=== PATIENT | female | born 1975 | race Caucasian/White ===

== ENCOUNTER 2017-05-16 12:33 | Observation (INO) ==
[2017-05-16] MEDS ORDERED: 0.9 % Sodium Chloride 500 ML IVC ONE (12:44)
--- NOTE | 2017-05-16 12:48 | Emergency Department Note ---
Disposition Clinical Impression: Chest pain Qualifiers: Chest pain type: unspecified Qualified Code(s): R07.9 - Chest pain, unspecified Disposition: Still a Patient Condition: Good Forms: ED Satisfaction Letter Time of Disposition: 14:13 Chest Pain HPI - General Chief Complaint: ED Chest Pain Stated Complaint: Chest pain Time Seen by Provider: 05/16/17 12:43 Source: family, EMS Mode of arrival: EMS Limitations: no limitations Vital Signs Reviewed: Yes Nursing Notes Reviewed: Yes - History of Present Illness HPI Narrative: Patient presents emergency room with onset of left-sided chest pain. She has had right-sided chest pain for over a month and a half. She has risk factors including smoking elevated blood pressure and high cholesterol. She denies any trauma or injuries. She was concerned because the symptoms came on. She was seen by EMS provided with aspirin and nitroglycerin which completely resolved symptoms here prior to arrival Pt complaint: chest pain Onset (ago): Just [employer] Duration: now resolved Onset: during exertion Pain Location: left chest Severity: mild Severity scale (1-10): 0 Quality: aching, heaviness Pain Radiation: LUE Improves with: nitroglycerin Worsens with: exertion Associated symptoms: Denies: nausea, vomiting, diaphoresis Treatments prior to arrival chest pain: aspirin, nitroglycerin - Related Data Home Medications Medication Instructions Recorded Confirmed Cholecalciferol (D-3) [Vitamin D] 1,000 unit PO DAILY 05/16/17 05/16/17 FLUoxetine HCl [Fluoxetine HCl] 40 mg PO DAILY 05/16/17 05/16/17 Lisinopril/Hydrochlorothiazide 1 tab PO BID 05/16/17 05/16/17 [Zestoretic 20-12.5 mg Tablet] Ranitidine HCl [Zantac] 150 mg PO BID 05/16/17 05/16/17 traZODone [TraZODone] 50 mg PO HS 05/16/17 05/16/17 Previous Rx's Medication Instructions Recorded Albuterol Sulfate [Albuterol 2 puff IH Q4HR PRN #1 hfa.[email or web address] 07/08/15 Inhaler] Allergies Allergy/AdvReac Type Severity Reaction Status Date / Time No Known Allergies Allergy Verified 07/08/15 14:25 All systems ED: reviewed and negative except as stated. Review of Systems: As Per HPI Constitutional: Denies: fever, chills Cardiovascular: Reports: chest pain. Denies: palpitations, dyspnea on exertion , orthopnea, edema Respiratory: Denies: cough, dyspnea, wheezes, hemoptysis Gastrointestinal: Denies: abdominal pain, nausea, vomiting, diarrhea Genitourinary: Denies: urgency, dysuria Musculoskeletal: Denies: back pain, neck pain Neurological: Denies: headache Endocrine: Denies: fatigue Chest Pain PMH - Past Medical History Medical history: Reports: hypertension Surgical history: Reports: cholecystectomy, hysterectomy Psychiatric history: Reports: anxiety, ADHD, depression [employer] history: Reports: bilateral tubal ligation - Social History Smoking Status: Current every day smoker Alcohol use: Reports: occasionally Drug use: Reports: none Physical Exam - General Limitations: no limitations General appearance: alert - Head Head exam: atraumatic, normocephalic, normal inspection - Neck Neck exam: Present: normal inspection, full ROM, trachea midline - Chest Chest inspection: Present: normal inspection, symmetric chest wall rise - Respiratory Respiratory exam: Present: normal lung sounds bilaterally - Cardiovascular Cardiovascular exam: Present: regular rate, normal rhythm, normal heart sounds - Abdominal Exam Abdominal exam: Present: soft, Non-Tender, normal bowel sounds. Absent: tenderness, distention, guarding, rebound, rigidity - Extremities Exam Extremities exam: Present: normal inspection, full ROM, normal capillary refill. Absent: tenderness - Back Exam Back exam: Present: normal inspection, full ROM. Absent: tenderness - Neurological Exam Neurological exam: Present: alert, oriented X3, CN II-XII intact, normal gait - Skin Skin exam: Present: warm, dry, intact, normal color Course Course Narrative: Patient seen and examined at the time of arrival. See history of present illness. 41-year-old female presents emergency room with multiple complaints. States she is describing left-sided chest wall pain that is intermittent and resolved with nitroglycerin provided to her by EMS. She has had intermittent right-sided chest pain for the last month and a half but today is the first time she has ever had left-sided chest pain. The symptoms came on while she was riding her bicycle today. She denies any trauma or injuries. Patient does have risk factors including smoking hypertension and hyperlipidemia. She has never any cardiac disease in the past. Patient does have moderate risk factors as well as concerning symptoms with response to nitroglycerin. Cardiac evaluation to be completed with EKG chest x-ray troponins as well as fluid hydration aspirin are given in transit. Nitroglycerin has resolved her symptoms. EKG was collected immediately showing sinus rhythm with normal intervals. T waves are peaked but in comparison to an EKG on 10/16/12 it is an identical morphology in presentation. No acute signs of ST segment elevation at this time. Patient otherwise rested comfortably in the bed 100% symptom free at this time. We will discuss intervention and possible admission once workup is completed. Disposition pending treatment course evaluation here. - Reevaluation(s) Reevaluation #1: Patient's EKG troponin and laboratory workup were negative this time. Patient will be admitted for ACS evaluation with chest pain that responded to nitroglycerin trial here. Patient is otherwise stable. Disposition pending treatment course. Hospitals page at this time for admission process Time: 14:00 Reevaluation #2: Hospitalist and I reviewed the patient's presentation symptoms and medical history. We discussed the findings. CT imaging of the abdomen is still pending secondary to the patient's colicky abdominal pain for several weeks. Low clinical suspicion for this pertained to the patient's presentation today. There is still concern a recommendation for admission secondary to her chest pain that responded to nitroglycerin. Patient otherwise has stable laboratory workup. Disposition pending the imaging study. Admission process will be completed once imaging is resulted. CT imaging of the abdomen is negative. Patient admission process completed at this time Time: 14:03 Vital Signs Temperature 98.8 F 05/16/17 12:35 Pulse Rate 75 05/16/17 12:35 Respiratory Rate 16 05/16/17 12:35 Blood Pressure 160/104 05/16/17 12:35 O2 Sat by Pulse Oximetry 99 05/16/17 12:35 Temperature 98.8 F 05/16/17 12:35 Pulse Rate 75 05/16/17 12:35 Respiratory Rate 16 05/16/17 12:35 Blood Pressure 160/104 05/16/17 12:35 O2 Sat by Pulse Oximetry 99 05/16/17 12:35 Oxygen Delivery Oxygen Delivery Room Air Chest Pain - MDM Narrative Medical decision making narrative: Chest pain, rule out acute coronary syndrome - Medical Records Medical records reviewed: Yes I reviewed the patient's medical records. - Lab Data Lab results reviewed: Yes I reviewed the patient's lab results. Result diagrams: 05/16/17 13:02 05/16/17 13:02 Lab Results 05/16/17 05/16/17 05/16/17 Range/Units 12:52 13:02 13:02 WBC (4.3-11.1) K/mcL RBC (3.82-4.97) M/mcL Hgb (11.5-15.4) g/dL Hct (35.3-44.9) % MCV (83.0-100.0) fL MCH (28.0-33.3) pg MCHC (31.6-35.5) g/dL RDW (11.5-14.5) % Plt Count (140-400) K/mcL MPV (9.4-12.4) fL Immature Gran % (0-4) % Seg Neutrophils % % Lymphocytes % % Monocytes % % Eosinophils % % Basophils % % Neutrophils # (1.6-8.9) K/mcL Lymphocytes # (0.6-4.6) K/mcL Monocytes # (0.0-1.3) K/mcL Eosinophils # (0.0-0.6) K/mcL Basophils # (0.0-0.2) K/mcL PT 12.2 H (9.4-12.1) Seconds INR 1.1 APTT 32.5 (26.0-36.0) Seconds Sodium (136-145) mEq/L Potassium (3.5-4.5) mEq/L Chloride (98-109) mEq/L Carbon Dioxide (19-29) mEq/L BUN (7-20) mg/dL Creatinine (0.57-1.11) mg/dL Est GFR ( Amer) (> 60) Est GFR (Non-Af Amer) (> 60) BUN/Creatinine Ratio (6-26) Glucose (70-99) mg/dL Calculated Osmolality (280-300) Calcium (8.6-10.8) mg/dL Total Bilirubin 0.7 (0.2-1.2) mg/dL Direct Bilirubin 0.2 (0.0-0.5) mg/dL Indirect Bilirubin 0.5 (0.0-1.2) mg/dL AST 18 (5-34) Units/L ALT 16 (0-55) Units/L Alkaline Phosphatase 60 (38-126) Units/L Troponin I (0-0.03) ng/mL B-Natriuretic Peptide (0-100) pg/mL Serum Total Protein 7.5 (6.0-8.3) g/dL Albumin 4.0 (3.5-5.0) g/dL Globulin 3.5 (2.4-3.5) g/dL Albumin/Globulin Ratio 1.1 (1.1-2.2) Lipase 47 (8-78) Units/L Urine Color Yellow (Yellow) Urine Clarity Slightly Hazy (Clear) Urine pH 6.5 (5.0-8.0) pH Units Ur Specific [place] 1.026 H (1.010-1.025) Urine Protein Negative (Neg-Trace) mg/dL Urine Glucose (UA) Normal (Normal) mg/dL Urine Ketones Negative (Negative) mg/dL Urine Blood Negative (Negative) Urine Nitrite Negative (Negative) Urine Bilirubin Negative (Negative) Urine Urobilinogen Normal (Normal) mg/dL Ur Leukocyte Esterase Negative (Negative) Urine Microscopic RBC 5-15 H (0-3) per hpf Ur Squamous Epith Cells Many H (None-Few) per lpf Urine Bacteria Few (None-Few) per hpf Hyaline Casts None Seen (None-Few) per lpf Ur Culture Indicated? NO (NO) 05/16/17 05/16/17 05/16/17 Range/Units 13:02 13:02 13:02 WBC 9.3 (4.3-11.1) K/mcL RBC 5.08 H (3.82-4.97) M/mcL Hgb 14.9 (11.5-15.4) g/dL Hct 44.2 (35.3-44.9) % MCV 87.0 (83.0-100.0) fL MCH 29.3 (28.0-33.3) pg MCHC 33.7 (31.6-35.5) g/dL RDW 13.1 (11.5-14.5) % Plt Count 229 (140-400) K/mcL MPV 10.5 (9.4-12.4) fL Immature Gran % 0.2 (0-4) % Seg Neutrophils % 66.4 % Lymphocytes % 24.3 % Monocytes % 6.4 % Eosinophils % 2.2 % Basophils % 0.5 % Neutrophils # 6.2 (1.6-8.9) K/mcL Lymphocytes # 2.3 (0.6-4.6) K/mcL Monocytes # 0.6 (0.0-1.3) K/mcL Eosinophils # 0.2 (0.0-0.6) K/mcL Basophils # 0.1 (0.0-0.2) K/mcL PT (9.4-12.1) Seconds INR APTT (26.0-36.0) Seconds Sodium 137 (136-145) mEq/L Potassium 4.2 (3.5-4.5) mEq/L Chloride 109 (98-109) mEq/L Carbon Dioxide 22 (19-29) mEq/L BUN 10 (7-20) mg/dL Creatinine 0.67 (0.57-1.11) mg/dL Est GFR ( Amer) > 60 (> 60) Est GFR (Non-Af Amer) > 60 (> 60) BUN/Creatinine Ratio 15 (6-26) Glucose 103 H (70-99) mg/dL Calculated Osmolality 283 (280-300) Calcium 9.5 (8.6-10.8) mg/dL Total Bilirubin (0.2-1.2) mg/dL Direct Bilirubin (0.0-0.5) mg/dL Indirect Bilirubin (0.0-1.2) mg/dL AST (5-34) Units/L ALT (0-55) Units/L Alkaline Phosphatase (38-126) Units/L Troponin I (0-0.03) ng/mL B-Natriuretic Peptide 14 (0-100) pg/mL Serum Total Protein (6.0-8.3) g/dL Albumin (3.5-5.0) g/dL Globulin (2.4-3.5) g/dL Albumin/Globulin Ratio (1.1-2.2) Lipase (8-78) Units/L Urine Color (Yellow) Urine Clarity (Clear) Urine pH (5.0-8.0) pH Units Ur Specific [place] (1.010-1.025) Urine Protein (Neg-Trace) mg/dL Urine Glucose (UA) (Normal) mg/dL Urine Ketones (Negative) mg/dL Urine Blood (Negative) Urine Nitrite (Negative) Urine Bilirubin (Negative) Urine Urobilinogen (Normal) mg/dL Ur Leukocyte Esterase (Negative) Urine Microscopic RBC (0-3) per hpf Ur Squamous Epith Cells (None-Few) per lpf Urine Bacteria (None-Few) per hpf Hyaline Casts (None-Few) per lpf Ur Culture Indicated? (NO) 05/16/17 Range/Units 13:02 WBC (4.3-11.1) K/mcL RBC (3.82-4.97) M/mcL Hgb (11.5-15.4) g/dL Hct (35.3-44.9) % MCV (83.0-100.0) fL MCH (28.0-33.3) pg MCHC (31.6-35.5) g/dL RDW (11.5-14.5) % Plt Count (140-400) K/mcL MPV (9.4-12.4) fL Immature Gran % (0-4) % Seg Neutrophils % % Lymphocytes % % Monocytes % % Eosinophils % % Basophils % % Neutrophils # (1.6-8.9) K/mcL Lymphocytes # (0.6-4.6) K/mcL Monocytes # (0.0-1.3) K/mcL Eosinophils # (0.0-0.6) K/mcL Basophils # (0.0-0.2) K/mcL PT (9.4-12.1) Seconds INR APTT (26.0-36.0) Seconds Sodium (136-145) mEq/L Potassium (3.5-4.5) mEq/L Chloride (98-109) mEq/L Carbon Dioxide (19-29) mEq/L BUN (7-20) mg/dL Creatinine (0.57-1.11) mg/dL Est GFR ( Amer) (> 60) Est GFR (Non-Af Amer) (> 60) BUN/Creatinine Ratio (6-26) Glucose (70-99) mg/dL Calculated Osmolality (280-300) Calcium (8.6-10.8) mg/dL Total Bilirubin (0.2-1.2) mg/dL Direct Bilirubin (0.0-0.5) mg/dL Indirect Bilirubin (0.0-1.2) mg/dL AST (5-34) Units/L ALT (0-55) Units/L Alkaline Phosphatase (38-126) Units/L Troponin I 0.00 (0-0.03) ng/mL B-Natriuretic Peptide (0-100) pg/mL Serum Total Protein (6.0-8.3) g/dL Albumin (3.5-5.0) g/dL Globulin (2.4-3.5) g/dL Albumin/Globulin Ratio (1.1-2.2) Lipase (8-78) Units/L Urine Color (Yellow) Urine Clarity (Clear) Urine pH (5.0-8.0) pH Units Ur Specific [place] (1.010-1.025) Urine Protein (Neg-Trace) mg/dL Urine Glucose (UA) (Normal) mg/dL Urine Ketones (Negative) mg/dL Urine Blood (Negative) Urine Nitrite (Negative) Urine Bilirubin (Negative) Urine Urobilinogen (Normal) mg/dL Ur Leukocyte Esterase (Negative) Urine Microscopic RBC (0-3) per hpf Ur Squamous Epith Cells (None-Few) per lpf Urine Bacteria (None-Few) per hpf Hyaline Casts (None-Few) per lpf Ur Culture Indicated? (NO) - Radiology Data Radiology results reviewed: Yes I reviewed the patient's radiology results. - EKG Data EKG attestation: Yes I reviewed and interpreted this EKG. EKG shows normal: sinus rhythm, axis, intervals, QRS complexes, ST-T waves Rate: normal Rhythm: NSR [place]/QRS: normal When compared to previous EKG there are: no significant changes Interpretation: no acute changes, unchanged when compared to prior tracing (date ) (10/16/12) Heart Score - Score History: Moderately Suspicious EKG: Normal Age: Less than 45 Risk Factors: Equal/Greater than 3 risk factor or history of atherosclerotic disease Troponin: Less than normal limit HEART Score Total: 3
[2017-05-16 13:11] LABS: Basophils # 0.1 K/mcL (0.0-0.2); Basophils % 0.5 %; Eosinophils # 0.2 K/mcL (0.0-0.6); Eosinophils % 2.2 %; Hematocrit 44.2 % (35.3-44.9); Hemoglobin 14.9 g/dL (11.5-15.4); Immature Granulocytes % 0.2 % (0-4); Lymphocytes # 2.3 K/mcL (0.6-4.6); Lymphocytes % 24.3 %; Mean Corpuscular HGB Conc 33.7 g/dL (31.6-35.5); Mean Corpuscular Hemoglobin 29.3 pg (28.0-33.3); Mean Platelet Volume 10.5 fL (9.4-12.4); Monocytes # 0.6 K/mcL (0.0-1.3); Monocytes % 6.4 %; Neutrophils # 6.2 K/mcL (1.6-8.9); Platelet Count 229 K/mcL (140-400); Red Blood Count 5.08 M/mcL (3.82-4.97); Red Cell Distribution Width 13.1 % (11.5-14.5); Segmented Neutrophils % 66.4 %
[2017-05-16 13:12] LABS: Bacteria,Urine Few per hpf (None-Few); Hyaline Casts,Urine None Seen per lpf (None-Few); PH,Urine 6.5 pH Units (5.0-8.0); Specific Gravity,Urine 1.026 (1.010-1.025); Squamous Epithelial Cell,Urine Many per lpf (None-Few); Urobilinogen,Urine Normal (Normal)
[2017-05-16 13:14] LABS: Bilirubin,Urine Negative (Negative); Clarity,Urine Slightly Hazy (Clear); Color,Urine Yellow (Yellow); Glucose,Urine (UA) Normal (Normal); Ketones,Urine Negative (Negative)
[2017-05-16 13:15] LABS: Blood,Urine Negative (Negative); Leukocyte Esterase,Urine Negative (Negative); Nitrite,Urine Negative (Negative); Protein,Urine Negative (Neg-Trace)
[2017-05-16 13:19] LABS: INR 1.1; Prothrombin Time 12.2 Seconds (9.4-12.1)
[2017-05-16 13:21] LABS: Activated Partial Thrombo Time 32.5 Seconds (26.0-36.0)
[2017-05-16 13:29] LABS: BUN/Creatinine Ratio 15 (6-26); Blood Urea Nitrogen 10 mg/dL (7-20); Calcium 9.5 mg/dL (8.6-10.8); Carbon Dioxide 22 mEq/L (19-29); Chloride 109 mEq/L (98-109); Glucose 103 mg/dL (70-99); Osmolality,Calculated 283 (280-300); Potassium 4.2 mEq/L (3.5-4.5); Sodium 137 mEq/L (136-145); eGFR For African Americans > 60 (> 60); eGFR For Non-African Americans > 60 (> 60)
[2017-05-16 13:32] LABS: Albumin/Globulin Ratio 1.1 (1.1-2.2); Bilirubin,Direct 0.2 mg/dL (0.0-0.5); Bilirubin,Indirect 0.5 mg/dL (0.0-1.2); Bilirubin,Total 0.7 mg/dL (0.2-1.2); Globulin 3.5 g/dL (2.4-3.5); Total Protein 7.5 g/dL (6.0-8.3)
--- NOTE | 2017-05-16 14:16 | Event Note ---
Date of Encounter: 05/16/17 Time of Encounter: 14:13 1. Chest pain Telemetry, follow troponins, check lipid panel, nitroglycerin and morphine as needed Aspirin, schedule stress test in the morning, echocardiogram 2. Hypertension, continue lisinopril and hydrochlorothiazide 3. Tobacco use, smoking cessation counseling, nicotine patch 4. Anxiety, may use Xanax as needed 5. Abdominal pain, CT scan of the abdomen ordered in the ER still pending, follow final report Omeprazole 40 for GI prophylaxis and Lovenox for DVT prophylaxis. The patient will be admitted for observation. Full code. Time spent on this admission 40 minutes. H&P to be completed by KEN Dennis
[2017-05-16] MEDS ORDERED: *HR* Morphine 2 MG/ML SYRINGE IVP PRN (14:24)
--- NOTE | 2017-05-16 14:43 | Internal Med History&Physical ---
<Ines Dennis - Last Filed: 05/16/17 14:56> Date of Encounter: 05/16/17 Time of Encounter: 14:35 Assessment and Plan (1) Chest pain Current visit: Yes Status: Acute Intermittent for one month prior to presentation. Symptoms improved in the ED. Received ASA and nitro prior to arrival. Initial trop was negative, EKG no acute ST changes. Suspect anxiety is contributing. Cycle troponins, check echo, stress test, consult cardio if needed. Continue ASA, TSH, Lipid panel, HGB, A1c pending. Qualifiers: Chest pain type: unspecified Qualified Code(s): R07.9 - Chest pain, unspecified (2) Essential hypertension Current visit: Yes Status: Acute Per hx. BP elevated while in the ED. Multifactorial with anxiety, and acute illness. Continue home BP medications. Monitor BP and titrate PRN. (3) Anxiety Current visit: Yes Status: Acute Patient reports HX. of PTSD. Appears anxious on exam; likely contributing to symptoms. Continue home Prozac (4) DVT prophylaxis Current visit: Yes Status: Acute [facility] - H&P: HPI Chief complaint: chest pain Admitted From: Home Plans for Post Hospital Care: Home History of present illness: Ms. Crook is a 41 year old female PMH of HTN, PTSD with anxiety. Presents to [facility] on 05-16-17 with right-sided chest pain. She was placed in observation status for ACS rule out. Information obtained from chart review and patient report. Patient reports intermittent chest pain for the last month. Say pain worsened today so she came to ER. Pain is described as constant and sharp/ stabbing in the right chest radiating to the right neck. Reports that the pain is better with relaxing and worse with activity. Also reports intermittent ABD pain with loose stool for at least the year. No CP, no SOB on my exam. Past Med Surg Social Fam HX - Past Medical History Medical history: hypertension Psychiatric history: anxiety, ADHD, depression - Past Surgical History Surgical History: cholecystectomy, hysterectomy - Social History Smoking Status: Current every day smoker Smokeless Tobacco Status: No Alcohol use: occasionally Drug use: none - Additional Family History Additional family history: Reviewed and non contributory. Father family hx unknown per patient. Internal Medicine - H&P: Meds Albuterol Sulfate [Albuterol Inhaler] 2 puff IH Q4HR PRN #1 [email or web address].ad 07/08/15 [Rx] Cholecalciferol (D-3) [Vitamin D] 1,000 unit PO DAILY 05/16/17 [History] FLUoxetine HCl [Fluoxetine HCl] 40 mg PO DAILY 05/16/17 [History] Lisinopril/Hydrochlorothiazide [Zestoretic 20-12.5 mg Tablet] 1 tab PO BID 05/16 [History] Ranitidine HCl [Zantac] 150 mg PO BID 05/16/17 [History] traZODone [TraZODone] 50 mg PO HS 05/16/17 [History] Allergies No Known Allergies Allergy (Verified 07/08/15 14:25) All Systems PM: A 10-system review of systems was performed and is negative for pertinent findings except as documented above in the HPI. - Constitutional Constitutional: no chills, no fever(s), no night sweats - EENT Eyes: no change in vision, no discharge, no pain, no photophobia Ears: no ear discharge, no ear pain, no tinnitus Nose, mouth and throat: no dysphagia, no nasal discharge, no neck pain, no sore throat - Cardiovascular Cardiovascular ROS IM: chest pain, no diaphoresis, no dyspnea, no lightheadedness, no palpitations, no syncope - Respiratory Respiratory: no cough, no dyspnea, no wheezing, no excessive phlegm production - Gastrointestinal Gastrointestinal: abdominal pain, no diarrhea, no hematemesis, no hematochezia, no melena, no nausea, no vomiting - Genitourinary Genitourinary: no change in urinary stream, no dysuria, no flank pain, no hematuria - Musculoskeletal Musculoskeletal ROS IM: no numbness, no tingling - Integumentary Integumentary IM: no rash, no unusual bruising - Neurological Neurological ROS: no confusion, no convulsions, no focal weakness, no numbness, no tingling, no tremor(s) - Hematologic/Lymphatic Hematologic/Lymphatic: no easy bruising - Constitutional Vitals: Temp Pulse Resp BP Pulse Ox 98.8 F 73 16 152/91 97 05/16/17 12:35 05/16/17 14:02 05/16/17 14:22 05/16/17 14:22 05/16/17 14:02 - Head Head exam: Present: atraumatic, normocephalic - Eye Eye exam: Present: PERRL, conjuntiva pink, sclera anicteric Pupils: Present: PERRL - Neck Neck exam general surgery: Present: supple, trachea midline. Absent: lymphadenopathy - Respiratory Respiratory exam: Present: CTAB. Absent: accessory muscle use, rales, rhonchi, wheezes - Cardiovascular Cardiovascular exam: Present: RRR, +S1, +S2. Absent: diastolic murmur, gallop, rubs, systolic murmur - GI/Abdominal GI/Abdominal exam: Present: normal bowel sounds, soft, no peritoneal signs. Absent: distended, tenderness - Extremities Exam Extremities exam: Present: warm, radial pulses palpable and symetrical. Absent : calf tenderness, cyanotic, pedal edema - Neurological Exam Neurological exam: Present: CN II-XII intact, oriented X3, no focal deficits. Absent: pronater drift, facial droop, speech deficit - Psychiatric Psychiatric exam: Present: anxious - Skin Skin exam: Present: dry, intact Internal Med - H&P Results - Labs CBC & Chem 7: 05/16/17 13:02 05/16/17 13:02 <Jesu Serra H - Last Filed: 05/17/17 11:27> Date of Encounter: 05/17/17 Internal Medicine - H&P: HPI History of present illness: Ms. Crook is a 41 year old female All Systems PM: A 10-system review of systems was performed and is negative for pertinent findings except as documented above in the HPI. - Constitutional Vitals: Temp Pulse Resp BP Pulse Ox 98.3 F 76 17 151/87 97 05/17/17 11:13 05/17/17 11:13 05/17/17 11:13 05/17/17 11:13 05/17/17 11:13 Internal Med - H&P Results - Labs CBC & Chem 7: 05/17/17 01:03 05/17/17 01:03 Labs: Short CBC 05/17/17 Range/Units 01:03 WBC 7.8 (4.3-11.1) K/mcL Hgb 14.5 (11.5-15.4) g/dL Hct 44.9 (35.3-44.9) % Plt Count 199 (140-400) K/mcL Neutrophils # 4.5 (1.6-8.9) K/mcL BMP 05/17/17 01:03 Sodium 140 Potassium 4.0 Chloride 111 H Carbon Dioxide 21 BUN 11 Creatinine 0.68 Glucose 92 Calcium 9.3 Cardiac Enzymes 05/16/17 05/17/17 Range/Units 18:56 01:03 Troponin I 0.00 0.00 (0-0.03) ng/mL Liver Function 05/17/17 Range/Units 01:03 Total Bilirubin 0.3 (0.2-1.2) mg/dL AST 18 (5-34) Units/L ALT 15 (0-55) Units/L Alkaline Phosphatase 59 (38-126) Units/L Albumin 3.8 (3.5-5.0) g/dL - Impressions ITS Impressions Echocardiogram 05/16/17 14:24 Impressions: LVEF 60%. Normal left ventricular size and systolic function. Normal diastolic function of the left ventricle. Normal right ventricular size and function. No significant valvular dysfunction. No pulmonary hypertension. Left Ventricular Wall Motion: Rest Echo Findings All wall segments showed normal motion. Findings: Study Quality * Technically adequate exam. ECG Findings * Normal sinus rhythm. Left Ventricle * LVEF 60%. * Normal LV chamber size, wall thickness and function. * Normal left ventricular diastolic function. Aorta * Not well visualized. Aortic Valve * No aortic regurgitation. * Aortic valve not well visualized. * No aortic stenosis. Mitral Valve * No mitral regurgitation. * Normal mitral valve structure. * No mitral stenosis. Tricuspid Valve * Tricuspid valve not well visualized. * No tricuspid regurgitation. * Estimated RA pressure is 3 mmHg. Right Ventricle * Normal right ventricular structure and function. Left Atrium * Normal left atrial size. Right Atrium * Normal right atrial size. Pulmonic Valve * Pulmonic valve is not well visualized. * No pulmonic stenosis. * No pulmonic regurgitation. Pulmonary Artery * Pulmonary artery not well visualized. Pericardium * There is no pericardial effusion present. Interatrial Septum * No evidence of PFO by color Doppler. IVC * Normal IVC dimensions and inspiratory collapse. - Attending Attestation 1. Chest pain Telemetry, follow troponins, check lipid panel, nitroglycerin and morphine as needed Aspirin, schedule stress test in the morning, echocardiogram 2. Hypertension, continue lisinopril and hydrochlorothiazide 3. Tobacco use, smoking cessation counseling, nicotine patch 4. Anxiety, may use Xanax as needed 5. Abdominal pain, CT scan of the abdomen ordered in the ER still pending, follow final report Omeprazole 40 for GI prophylaxis and Lovenox for DVT prophylaxis. The patient will be admitted for observation. Full code. Time spent on this admission 40 minutes. For this encounter, I have reviewed the [employer] ATTENDANT or PA documentation, treatment plan, and medical decision making; and I have had face to face time with this patient.
[2017-05-16] MEDS: Nicotine 21 MG PATCH.TD24 TD SCH (15:51)
[2017-05-16] MEDS: Lisinopril-HCTZ 20-12.5mg TABLET PO SCH (20:28)
[2017-05-16] MEDS: Famotidine 20 MG TABLET PO SCH (20:28)
[2017-05-16] MEDS ORDERED: traZODone 50 MG TABLET PO SCH (21:00)
[2017-05-17 01:20] LABS: Basophils # 0.1 K/mcL (0.0-0.2); Basophils % 0.8 %; Eosinophils # 0.4 K/mcL (0.0-0.6); Eosinophils % 4.7 %; Hematocrit 44.9 % (35.3-44.9); Hemoglobin 14.5 g/dL (11.5-15.4); Immature Granulocytes % 0.1 % (0-4); Lymphocytes # 2.4 K/mcL (0.6-4.6); Lymphocytes % 30.2 %; Mean Corpuscular HGB Conc 32.3 g/dL (31.6-35.5); Mean Corpuscular Hemoglobin 28.9 pg (28.0-33.3); Mean Corpuscular Volume 89.4 fL (83.0-100.0); Mean Platelet Volume 10.6 fL (9.4-12.4); Monocytes # 0.5 K/mcL (0.0-1.3); Monocytes % 6.9 %; Neutrophils # 4.5 K/mcL (1.6-8.9); Platelet Count 199 K/mcL (140-400); Red Blood Count 5.02 M/mcL (3.82-4.97); Red Cell Distribution Width 13.2 % (11.5-14.5); Segmented Neutrophils % 57.3 %
[2017-05-17 01:35] LABS: Hemoglobin A1C 5.3 %
[2017-05-17 01:43] LABS: Alanine Aminotransferase 15 Units/L (0-55); Albumin 3.8 g/dL (3.5-5.0); Albumin/Globulin Ratio 1.2 (1.1-2.2); Alkaline Phosphatase 59 Units/L (38-126); Aspartate Amino Transferase 18 Units/L (5-34); BUN/Creatinine Ratio 16 (6-26); Bilirubin,Total 0.3 mg/dL (0.2-1.2); Blood Urea Nitrogen 11 mg/dL (7-20); Calcium 9.3 mg/dL (8.6-10.8); Carbon Dioxide 21 mEq/L (19-29); Chloride 111 mEq/L (98-109); Globulin 3.2 g/dL (2.4-3.5); Glucose 92 mg/dL (70-99); Osmolality,Calculated 289 (280-300); Sodium 140 mEq/L (136-145); eGFR For African Americans > 60 (> 60); eGFR For Non-African Americans > 60 (> 60)
[2017-05-17 01:57] LABS: Thyroid Stimulating Hormone 0.213 mcIU/mL (0.350-4.840)
[2017-05-17] MEDS ORDERED: *HR* Enoxaparin 40 MG/0.4 ML SYRINGE SQ SCH (06:00)
[2017-05-17] MEDS ORDERED: Aspirin 81 MG TAB.CHEW PO SCH (09:00)
[2017-05-17] MEDS ORDERED: FLUoxetine 20 MG CAPSULE PO SCH (09:00)
[2017-05-17] MEDS: Lisinopril-HCTZ 20-12.5mg TABLET PO SCH (10:54)
[2017-05-17] MEDS: Famotidine 20 MG TABLET PO SCH (10:54)
[2017-05-17] MEDS: Nicotine 21 MG PATCH.TD24 TD SCH (10:55)
--- NOTE | 2017-05-17 11:05 | Nuclear Medicine Stress Report ---
Exercise Nuclear Stress Name: Marcela Crook Date of Study: 05/17/2017 Date: 1975 Ht: 67.0 in Medical Record#: [id number] Age: 41 Wt: 190.0 lb Gender: Female Order #: [id number] Location: [facility] IP Room: [facility] Supervising Provider: Mary Murillo CNP Reading Physician: Jess Cornejo DO Ordering Physician: Vijaya Lowe CNP Primary Care Physician: Vidhya Tsang CNP Stress Technologist: Nidia Barnett, [employer] Business Analyst Consultant: Lito Blackwell Indications: Chest Pain Impression: Perfusion imaging was negative for ischemia or infarct. Exercise ECG was negative for ischemia. 1/10 chest pain prior to the start of testing resolved with exercise. Gated EF = >70%. History: Hypertension History of Smoking Stress Test Summary: Stress Test Type: Treadmill Regadenoson 0.4mg/5ml given IV Baseline Information: Initial Heart Rate: 73 Blood Pressure: 130/82 Stress Information: Stress Time: 7 min 31 sec Test Terminated Due to (primary): Fatigue Maximum Blood Pressure: 150/102 Maximum Heart Rate: 154 Percent Maximum Heart Rate Achieved: 85 Double Product: [id number] METS Reached: 7 Symptoms: No chest symptoms Nuclear Summary: SPECT myocardial perfusion imaging using [id number] Sestamibi given intravenously was performed at rest and following cardiac stress testing. The resting images were obtained following initial dose of 11.5 mCi. Following stress an additional dose of 34.8 mCi was given at peak exercise or 30 seconds post regadenoson infusion. Medication Given: Time Medication Dose Units Route Findings: Stress Note * Resting ECG demonstrated normal sinus rhythm with LVH (aVR criteria) and secondary nonspecific ST-T wave abnormalities. * Exercise ECG is negative for ischemia. * No arrhythmias were noted during stress. * Patient had 1/10 chest pain prior to the start of exercise. She denied chest pain during exercise or recovery. * The exercise capacity was fair. Hemodynamic responses * Normal hemodynamic responses to exercise. Study Quality * Study quality is good. Gated EF > 70% * Gated EF > 70%. Left Ventricle * The left ventricle is not dilated. TID * No evidence of transient ischemic dilatation. Lung Uptake * There is no evidence of increase lung uptake. NORMALS * Normal wall motion. * Normal segmental perfusion in stress. * Normal Segmental Perfusion in rest. Updated by Jess Cornejo on 05/17/2017 10:57:50 AM electronically signed on 05/17/2017 10:59:10 AM with status of Final
[2017-05-17 11:15] VITALS: BP 151/87
--- NOTE | 2017-05-17 15:10 | Discharge Summary ---
Date of Encounter: 05/17/17 Time of Encounter: 14:55 - Discharge Diagnosis (1) Chest pain Priority: Primary Status: Acute Comments: Pt reports approx 6 weeks of right upper chest pain, states that it became worse yesterday. She has had none since. Pt states that she used to take Klonipin for this same pain, but her PCP stopped giving it to her. She states that it has happened the last 2 times when she has tried to ride her bike. The pain is not reproducible with movement, deep inspiration, or palpation. She is pain free currently. Echo and stress were both negative. Troponin negative x 3, TSH WNL, A1c 5.3. I have suggested that she take Motrin 800mg prior to trying to ride her bike and to follow up with her PCP after she is discharged. Qualifiers: Chest pain type: unspecified Qualified Code(s): R07.9 - Chest pain, unspecified (2) Essential hypertension Priority: Secondary Status: Chronic Comments: Well controlled in inpatient setting. Continue home dose of Prinzide. (3) Anxiety Priority: Secondary Status: Chronic Comments: Pt states that she has chronic anxiety. Continue Prozac, Trazodone for sleep. (4) DVT prophylaxis Priority: Secondary Status: Acute Comments: Pt is ambulatory in her room. Lovenox SQ for pharmacological prophylaxis. (5) Tobacco abuse Priority: Secondary Status: Chronic Comments: Pt smokes approximately 1 ppd. We discussed smoking cessation options for about 4-5 minutes. Pt states that she would like to take Chantix, however, she is already taking Prozac. I have written her an rx for Nicotine patches. She is using them in the hospital and states that they are helpful. - Discharge Medications Prescriptions: Ibuprofen [Motrin] 800 mg PO BID PRN #10 tablet PRN Reason: Pain Nicotine Patch [Nicoderm] 21 mg TD DAILY #28 patch Home Medications: Albuterol Sulfate [Albuterol Inhaler] 2 puff IH Q4HR PRN #1 hfa.aer.[id number] 07/08/15 [Rx] Cholecalciferol (D-3) [Vitamin D] 1,000 unit PO DAILY 05/16/17 [History] FLUoxetine HCl [Fluoxetine HCl] 40 mg PO DAILY 05/16/17 [History] Lisinopril/Hydrochlorothiazide [Zestoretic 20-12.5 mg Tablet] 1 tab PO BID 05/16 [History] Ranitidine HCl [Zantac] 150 mg PO BID 05/16/17 [History] traZODone [TraZODone] 50 mg PO HS 05/16/17 [History] Ibuprofen [Motrin] 800 mg PO BID PRN #10 tablet 05/17/17 [Rx] Nicotine Patch [Nicoderm] 21 mg TD DAILY #28 patch 05/17/17 [Rx] Allergies/Adverse Reactions: Allergies No Known Allergies Allergy (Verified 07/08/15 14:25) Procedures/tests Complete & Pending: Procedures Performed prior 72 hours Category Date Time Status NM sejal perf SPECT multi [NM] Routine Exams 05/17/17 08:04 Taken ECG 12 lead ECG [ECG] Routine Y 05/16/17 14:24 Ordered ECG 12 lead ECG [ECG] Routine Y 05/17/17 07:00 Ordered EV echocardiogram Routine Y 05/16/17 14:24 Completed SP exercise nuclear stress Routine Y 05/17/17 08:04 Completed Date of admission: 05/16/17 14:20 Primary care physician: Vidhya Tsang CNP Discharging clinician: Vijaya Lowe Anticipated date of discharge: 05/17/17 - Patient Status Disposition: Home, Self-Care Functional capacity at discharge: independent ambulation Overall status at discharge: patient is back to baseline - Discharge Instructions Instructions: Chest Pain (DC) Follow Up With: Vidhya Tsang CNP [Primary Care Provider] - 05/22/17 1:00 pm Additional Instructions: Follow up with Jaime Tsang within the next 7-10 days. Take motrin approx 30 min prior to exertion Continue your other home medications. REturn to the ER immediately if your pain worsens or returns or for any other problems or concerns. - Diet and Activity Activity: increase activity as tolerated Diet: advance to your usual diet Interval History: Pt is a 41 yr old female with prior history of GERD, depression, anxiety, and HTN. Pt presented to the ED via EMS with c/o R upper chest pain that was relieved with NTG sl x 1, onset while riding a bike approximately 1/2 block. she states that it was sharp and did not radiate. She states that she became SOB , but denied nausea or diaphoresis. At the time of the incident, the pain became worse with deep inspiration. She states that she had not ever had chest pain like this before, however, later in the assessment, she states that she has had this same chest pain for at least a month and a half, but not as badly as she had it this time. She states that she used to have chest pain that was relieved with Klonipin, but her provider stopped giving them to her and she wondered if it would help this time. Suspect pleuritic chest pain due to the fact that it was worse with deep inspiration. She has not had any chest pain since prior to arriving at the ED. Troponin was negative, TSH WNL, chest xray negative for acute cardiopulmonary disease, stress test negative for ischemia or infarct, gated EF >70%, echo LVEF 60%, normal systolic and diastolic function, no valvular dysfunction. She apparently has had chest pain for an extended period of time and has had workups by her PCP with no change in condition. Pt states that she was told that she had COPD and that was the cause of her chest pain and was given an albuterol inhaler without relief. She will continue the inhaler that she uses at home. She will resume her normal home medications, vitals and labs are stable. Pt is ready for discharge. Hospital course: Ms. Crook is a 41 year old female Time spent discussing smoking cessation with patient: 3 to 10 minutes - Time Spent with Patient Total time spent providing and/or coordinating discharge services: Less than 30 minutes - Constitutional Vitals: Temp Pulse Resp BP Pulse Ox 98.3 F 76 17 151/87 97 05/17/17 11:13 05/17/17 11:13 05/17/17 11:13 05/17/17 11:13 05/17/17 11:13 General appearance: Present: cooperative, A&O X 3, pleasant, no acute distress, answers questions appropriately - Head Head exam: Present: normal inspection - Eye Eye exam: Present: normal appearance, conjuntiva pink. Absent: nystagmus - ENT ENT exam: Present: mucous membranes moist, normal exam, normal external ear exam - Neck Neck exam general surgery: Present: normal inspection. Absent: lymphadenopathy , tenderness - Respiratory Respiratory exam: Present: CTAB. Absent: chest wall tenderness, decreased breath sounds, prolonged expiratory phase, rales, respiratory distress, rhonchi , stridor, wheezes - Cardiovascular Cardiovascular exam: Present: RRR, +S1, +S2. Absent: diastolic murmur, systolic murmur - GI/Abdominal GI/Abdominal exam: Present: normal bowel sounds, soft. Absent: distended, hepatomegaly, tenderness - Extremities Exam Extremities exam: Present: warm, radial pulses palpable and symetrical. Absent : pedal edema, tenderness - Neurological Exam Neurological exam: Present: alert, oriented X3, no focal deficits. Absent: facial droop, speech deficit - Skin Skin exam: Present: dry, intact, warm. Absent: rash
== END 2017-05-17 15:33 | disposition home or self-care (01) ==
LOC: 3BNU 12:33 → EMEROO 12:33 → 3BNU 14:35
PROVIDERS: ADMIT Internal Medicine; ATTEND Registered Nurse